=== PATIENT | male | born 1965 | race African-American/Black ===

== ENCOUNTER 2020-10-16 12:13 | Emergency (ER) | payer OTHER ==
[~2020-10-16] VITALS: Ht 185.4 cm; Wt 91.0 kg
[2020-10-16] MEDS ORDERED: ASPIRIN 81MG TABLET PO ONE (13:15)
[2020-10-16] MEDS ORDERED: SODIUM CHLORIDE 0.9% 1,000 ML IV ONE (13:15)
[2020-10-16 14:23] LABS: BASOPHILS % 0.3 % (0.0-2.0); EOSINOPHILS % 0.1 % (0.0-5.0); HEMATOCRIT. 39.8 % (42.0-52.0); HEMOGLOBIN. 13.5 g/dL (14.0-18.0); LYMPHOCYTES % 12.5 % (20.0-50.0); MEAN CORPUSCULAR HEMOGLOBIN 28.9 pg (28.0-32.0); MEAN CORPUSCULAR VOLUME 85.1 fL (80.0-94.0); MEAN PLATELET VOLUME 7.9 fl (7.4-10.4); MONOCYTES % 8.5 % (2.0-8.0); NEUTROPHILS % 78.6 % (40.0-76.0); PLATELET 184 x1000/uL (130-400); RED BLOOD CELL COUNT 4.68 mill/uL (4.7-6.1); RED CELL DISTRIBUTION WIDTH 12.9 % (11.6-14.6)
[2020-10-16 14:28] LABS: CHLORIDE 105 mEq/L (98-107)
[2020-10-16 14:36] LABS: CREATINE KINASE 76 IU/L (39-308)
[2020-10-16 18:58] VITALS: BP 123/89
== END 2020-10-16 19:00 | disposition home or self-care (01) ==
LOC: ER 12:57
DX: R42 Dizziness and giddiness (principal); R06.02 Shortness of breath; R25.2 Cramp and spasm; M54.89 Other dorsalgia
CPT/HCPCS: 36415; 71045; 80053; 82550; 83880; 84484; 85025; 93005; 96360; 99285; J7030; Z7610